=== PATIENT | female | born 2000 | race Caucasian/White ===

== ENCOUNTER 2021-12-08 23:45 | Emergency (ER) | payer BC, SELFPAY ==
[2021-12-08 23:46] VITALS: BP 119/68; PULSE 95; RESP 15; TEMP 36.6; O2SAT 97; BMI 28.3
--- NOTE | 2021-12-09 00:04 | NURSING ---
BABY HRT 89 PER MD
--- NOTE | 2021-12-09 00:05 | EDS_ITS ---
HPI HPI - Female History of Present Illness Chief Complaint: Informant: patient Associated Symptoms Associated Symptoms: Negative for Dysuria, Frequency, Urgency and Hematuria P: 1 Ab: 1 Narrative Narrative: Patient presents here at midnight because she has not felt her baby m ove in 2 weeks. She is 19 weeks . She denies any pain, vaginal bleeding, or fluid discharge. No other symptoms. She has seen her OB during this and already had an ultrasound showing an intrauterine at about 8 weeks and has an appointment in 1 or 2 weeks. PFSH PFSH Medical History no medical history no medical history Home Medications pren vit comb.1-iron cb-FA-DSS 1 tab PO.IVFORM DAILY 12/09/21 [History Last Taken Unknown] Allergy/AdvReac Type Severity Reaction Status Date / Time No Known Allergies Allergy Verified 12/08/21 23:49 Social History Smoking Status: Never smoker ROS ROS ED Constitutional Constitutional ED: Denies chills or fever(s) Eyes Eyes: Denies change in vision or diplopia ENT ENT ED: Denies rhinorrhea or sore throat Cardiovascular Cardiovascular: Denies chest pain or palpitations Respiratory/Chest Respiratory/Chest: Denies cough or dyspnea Gastrointestinal Gastrointestinal: Denies abdominal pain, diarrhea, nausea or vomiting Genitourinary Genitourinary ED: Denies dysuria or hematuria Musculoskeletal Musculoskeletal: Denies back pain or neck pain Integumentary Denies abscess or rash Neurologic Neurologic: Denies headache(s), paresthesias or weakness Psychiatric Psychiatric: Denies anxiety or suicidal thoughts EXAM Physical Exam Const Vital Signs: 12/08/21 23:46 Temperature 97.9 F Temperature Source Temporal Pulse Rate 95 Respiratory Rate 15 Blood Pressure 119/68 Blood Pressure Mean 85 Pulse Ox 97 Oxygen Delivery Method Room Air Positive well nourished and well developed General Appearance ED: well developed and NAD HEENT Reports moist mucous membranes normocephalic and atraumatic Eyes PERRL and EOMs intact bilaterally Neck full ROM and supple Resp normal respiratory effort and clear to auscultation bilaterally Cardio regular rate, regular rhythm and no murmurs GI non-tender GI Narrative: gravid uterus to about the umbilicus Auscultation: normoactive bowel sounds Palpation: soft Back/Spine no CVA tenderness General Back: other FROM Extremity normal to inspection General Extremety ED: Negative for edema, pulses abnormal or tenderness General Extremity: Negative for edema or pulses abnormal Neuro oriented x3, CN's II-XII intact bilaterally and no sensory deficits noted Sensorium / Orientation: awake and alert Motor Exam: strength 5/5 throughout Skin no rashes or lesions noted and no wounds MDM MDM MDM Narrative Medical decision making narrative: Verified single live intrauterine with good heart tones. Patient is already on vitamins advised to follow-up as scheduled. Procedures Other Procedures Procedure(s): Bedside OB ultrasound by EDMD: Good movement that patient is not feeling. heart tones 143. Discharge Plan Triage Chief Complaint: ED Provider: Jaguar Robles Dx/Rx/DC Orders Clinical Impression: Second trimester Instructions: Preg 2nd Trimester Prescriptions: No Action pren vit comb.1-iron cb-FA-DSS 1 tab PO.IVFORM DAILY RF: 0 Referrals: Luis Mares MD [STAFF PHYSICIAN] - Keep [facility] appointment Disposition Disposition: Home, Self Care
== END 2021-12-09 00:17 | disposition home or self-care (01) ==
LOC: ED 12-09 00:15
PROVIDERS: Emergency Provider Emergency Medicine; Visit Provider Emergency Medicine
DX: O36.8120 Decreased fetal movements, second trimester, not applicable or unspecified (principal); Z3A.19 19 weeks gestation of pregnancy
CPT/HCPCS: 99282

== ENCOUNTER 2022-10-28 13:58 | Emergency (ER) | payer MEDICAID, SELFPAY ==
[2022-10-28 13:59] VITALS: BP 121/66; PULSE 92; RESP 18; TEMP 36.2; O2SAT 100; BMI 32.7
[2022-10-28 14:54] LABS: Internal QC Validated? YES +Cl - CLEAR BKGD; Pregnancy, Serum, hCG Quali. NEGATIVE Negative
--- NOTE | 2022-10-28 15:09 | EDS_ITS ---
HPI HPI - Female History of Present Illness Chief Complaint: Informant: patient Associated Symptoms Test: Negative, Urine and Home Sexually: Positive for Active P: 1 Ab: 1 Narrative Narrative: Sexually active 21-year-old states she missed her menstrual cycle 8 days ago, and is concerned she may be . She is usually regular. She denies any pain or urinary symptoms but states she was a little nauseated off and on. She did home urine test, several of them, all negative, and she is requesting a serum test because that is how I found out I was in the past. She recently moved here from [place], states she does not have a doctor or a GEOCHEMICAL MANAGER. [facility] Medical History (Updated 10/28/22 @ 15:[address] Jaguar Robles MD) delivery delivered Home Medications NK 10/28/22 [History Last Taken Unknown] Allergy/AdvReac Type Severity Reaction Status Date / Time No Known Allergies Allergy Verified 10/28/22 14:18 Social History Smoking Status: Never smoker ROS ROS ED Constitutional Constitutional ED: Denies chills or fever(s) Eyes Eyes: Denies change in vision or diplopia ENT ENT ED: Denies rhinorrhea or sore throat Cardiovascular Cardiovascular: Denies chest pain or palpitations Respiratory/Chest Respiratory/Chest: Denies cough or dyspnea Gastrointestinal Gastrointestinal: Denies abdominal pain, diarrhea, nausea or vomiting Genitourinary Genitourinary ED: Denies dysuria or hematuria Musculoskeletal Musculoskeletal: Denies back pain or neck pain Integumentary Denies abscess or rash Neurologic Neurologic: Denies headache(s), paresthesias or weakness Psychiatric Psychiatric: Denies anxiety or suicidal thoughts EXAM Physical Exam Const Vital Signs: 10/28/22 13:59 Temperature 97.2 F L Temperature Source Temporal Pulse Rate 92 Respiratory Rate 18 Blood Pressure 121/66 H Blood Pressure Mean 84 Pulse Ox 100 Oxygen Delivery Method Room Air Positive well nourished and well developed General Appearance ED: well developed and NAD HEENT Reports moist mucous membranes normocephalic and atraumatic Eyes PERRL and EOMs intact bilaterally Neck full ROM and supple Resp normal respiratory effort GI non-tender and non-distended Auscultation: normoactive bowel sounds Palpation: soft Extremity normal to inspection General Extremety ED: Negative for edema, pulses abnormal or tenderness General Extremity: Negative for edema or pulses abnormal Neuro oriented x3, CN's II-XII intact bilaterally and no sensory deficits noted Sensorium / Orientation: awake and alert Motor Exam: strength 5/5 throughout Skin no rashes or lesions noted and no wounds MDM MDM MDM Narrative Medical decision making narrative: Serum test obtained and is negative. Patient's vital signs are normal and her exam is unremarkable she is discharged home with an INCOME TAX INVESTIGATOR referral. Lab Data Labs: Laboratory Results - last 24 hr 10/28/22 14:38 Serum , Qual NEGATIVE Discharge Plan Triage Chief Complaint: ED Provider: Jaguar Robles Dx/Rx/DC Orders Clinical Impression: Amenorrhea Instructions: ED Amenorrhea Prescriptions: No Action NK Primary Care Provider: Care Physician,No Primary Referrals: Clarisa Haskins MD [Med Staff - Courtesy Staff] - (call for appt) Disposition Disposition: Home, Self Care
== END 2022-10-28 15:16 | disposition home or self-care (01) ==
PROVIDERS: Emergency Provider Emergency Medicine; Visit Provider Emergency Medicine
DX: N91.2 Amenorrhea, unspecified (principal); Z32.02 Encounter for pregnancy test, result negative
CPT/HCPCS: 84703; 99282

== ENCOUNTER 2023-07-28 20:22 | Emergency (ER) | payer SELFPAY ==
[2023-07-28 20:23] VITALS: BP 107/82; PULSE 154; RESP 18; TEMP 36.4; O2SAT 95; BMI 33.5
--- NOTE | 2023-07-28 20:41 | EKG12_ITS ---
Test Reason : COLD Blood Pressure : / mmHG Vent. Rate : 136 BPM Atrial Rate : 136 BPM P-R Int : 154 ms QRS Dur : 076 ms QT Int : 270 ms P-R-T Axes : 053 073 021 degrees QTc Int : 406 ms Sinus tachycardia Possible Left atrial enlargement Borderline ECG Confirmed by ZHENG GOODE, BERNADETTE ([id number]), staff editor AVERY ISAAC ([id number]) on 08/01/2023 2:01:39 P M Referred By: Confirmed By:SANDRA CALZADA MD
--- NOTE | 2023-07-28 20:43 | EX.ED.DYSGE1 ---
HPI History of Present Illness Chief Complaint: Cold Sx Informant: patient Narrative Narrative: Patient presents with a cold. Patient states that a couple nights ago she started coughing. Sometimes she does this anyway but it seems like it is harsher and more. She is denying any chest pain at any time. She is not actually short of breath. She does have a bit of a sore throat. She has been having fevers and chills. No myalgias. No hemoptysis. No nausea vomiting diarrhea. She states she is really not drinking as much as she should and feels that she is dehydrated but she is not nauseated. Evidently her daughter had some similar symptoms recently. I do note that the patient's heart rate is fast when she comes in. When I listen to her it is quick. She states she has had a fast heart rate before but she thinks it was due to Vyvanse that she used to be on but is no longer taking. She is not taking any byqo-ihc-mlvuckm meds now. She does not feel her heart rate going quickly. She has no history of DVT or PE. No recent surgery immobilization or control. But she did drive down to [facility] over . However this was only about a 2-1/2-hour drive. She had no chest pain or leg pain at the time. None afterwards. She states overall she does not feel bad. [facility] Medical History delivery delivered Home Medications NK 10/28/22 [History Last Taken Unknown] Allergy/AdvReac Type Severity Reaction Status Date / Time No Known Allergies Allergy Verified 07/28/23 20:23 Social History Smoking Status: Never smoker ROS ROS ED ROS Narrative A complete review of systems was performed and is negative except as documented in the history of present illness. Some specific details below. Constitutional: She states she has had subjective fevers and chills with hot cold sensations. Has not actually measured her temperature. EYE: No discharge, visual complaints, or pain. ENT: She does have a bit of a sore throat. She states her left side is always sore and this prevents her from being able to swallow pills. It does feel a little different than normal though. CV: She denies chest pain or palpitations. No syncope or near syncope. Respiratory: See history of present illness. Some cough but no wheezing no dyspnea and no sputum production. GI: No abdominal pain. No nausea vomiting diarrhea. No blood in stool. Her appetite evidently is down though. : No frequency dysuria or hematuria. Musculoskeletal: No recent trauma. No pains. No swelling. Skin: No rash. Nondiaphoretic. Neuro: No weakness or numbness. Endocrine: No polyuria or polydipsia. EXAM Physical Exam Narrative Exam Narrative: CONSTITUTIONAL: Patient is nontoxic in appearance. The patient looks comfortable. Work of breathing looks normal. Despite her increased heart rate she looks amazingly comfortable. HEENT: No notable trauma. Mucous membranes are somewhat dry. Both tonsils are slightly enlarged. There are some either multiple tonsil lifts or a little bit of exudate on them 2. EYES: No conjunctival injection. No proptosis. No pallor. No icterus. NECK:No JVD. No stridor. CARDIOVASCULAR: Tachycardic rate. Regular rhythm. No notable murmur. No JVD. No muffled tones. Peripheral pulses are still equal and strong RESPIRATORY: No respiratory distress. Breathing is unlabored. No wheezes. No rhonchi. No rales. No pain with a deep breath. No chest wall tenderness. Pulmonary exam is overall benign. Saturations are normal at 95% on room air showing no hypoxia. She does not cough while I am in the room. GASTROINTESTINAL: Not distended. Bowel sounds are normal. No tenderness. No guarding. No rebound. No palpable mass. No bruit is heard. GENITOURINARY: No tenderness over the bladder. No CVA tenderness. MUSCULOSKELETAL: Atraumatic. No peripheral edema. No cord. No tenderness along the deep venous system. No asymmetry. No distended veins. NEUROLOGICAL: Patient is alert and appropriate. No focal deficit noted. SKIN: No noted rashes. No diaphoresis. PSYCHIATRIC: Patient is calm. Mood is appropriate. Const Vital Signs: 07/28/23 20:23 07/28/23 21:01 07/28/23 21:01 Temperature 97.5 F L 97.5 F L Temperature Source Temporal Temporal Pulse Rate 154 H 154 H Respiratory Rate 18 18 Blood Pressure 107/82 H 107/82 H Blood Pressure Mean 90 90 Pulse Ox 95 94 95 Oxygen Delivery Method Room Air Room Air 07/28/23 22:24 Temperature Temperature Source Pulse Rate 127 H Respiratory Rate 18 Blood Pressure 126/81 H Blood Pressure Mean 96 Pulse Ox 99 Oxygen Delivery Method Room Air MDM MDM MDM Narrative Medical decision making narrative: My independent interpretation the patient's two-view chest x-ray shows changes likely due to body habitus. No defined infiltrate. Final reading showed mild diffuse bronchial thickening but no focal consolidation. Patient CBC showed high white count at 17.9. Her hemoglobin and platelets were normal. Patient's electrolytes are overall normal. Patient's glue close with just mildly up at 119. Patient's serum is negative. Patient's D-dimer was negative at 0.45. Patient's heart rate was rechecked. She was down to 127 with fluids. She still asymptomatic with this. I talked to her again. There is no other symptoms such as abdominal pain dysuria rashes headache. She states she has some mild nausea but that is not uncommon. Just like she states is not uncommon for her to have a bit of a cough. She again denies any drugs or rzbf-cgo-tsmsysz meds that she is taken. With her persistent tachycardia and a cough we will do a CTA of the chest even though her D-dimer was within normal limits. My independent interpretation of the CTA of the chest shows no acute process and final reading is the same. I checked the patient again. She is asymptomatic. She has no chest pain. She is not short of breath. She has no indication that her heart rate is going quickly. She is gotten up and walked around does not have symptoms. This patient's white count is up so I think she has some infectious process but this may be viral. She has a history of tachycardia but it sounds like that was primarily occurring when she was on Vyvanse. She is not on this now. I will send off blood cultures. But we will let her go home. We discussed multitude of reasons that would bring her back Lab Data Attestation: I reviewed the patient's lab results. Labs: Laboratory Results - last 24 hr 07/28/23 07/28/23 20:58 21:20 WBC 17.9 H RBC 4.52 Hgb 12.0 Hct 40.9 MCV 90.5 MCH 26.5 L MCHC 29.3 L RDW Std Deviation 49.7 H RDW Coeff of Carly 15.0 H Plt Count 292 MPV 11.7 Immature Gran % (Auto) 0.300 Neut % (Auto) 83.4 H Lymph % (Auto) 9.3 L Ward % (Auto) 5.9 Eos % (Auto) 0.4 Baso % (Auto) 0.7 Absolute Neuts (auto) 14.9 H Absolute Lymphs (auto) 1.67 Nucleated RBC % 0 D-Dimer Quant (PE/DVT) Cancelled 0.45 Sodium 136 Potassium 3.7 Chloride 106 Carbon Dioxide 27.0 Anion Gap 3 L BUN 9 Creatinine 0.72 Estim Creat Clear Calc 102.24 Est GFR (MDRD) Af Amer 131 Est GFR (MDRD) Non-Af 108 BUN/Creatinine Ratio 12.5 Glucose 119 H Calcium 9.1 Serum , Qual NEGATIVE Radiography Diagnostic Testing: Clinical Impression(s) from Imaging Studies Chest X-Ray 07/28/23 21:08 IMPRESSION: Mild diffuse bronchial thickening as can be seen with bronchitis or asthma. No focal consolidation. Electronically Signed: Amado Pastor MD at 21:55 EST , Chest CTA 07/28/23 22:28 IMPRESSION: Normal CTA chest examination, without a demonstrated pulmonary embolism or arterial dissection. Electronically Signed: Philip Molina MD at 23:08 EST , EKG Initial EKG: Comments: My independent interpretation of the patient's EKG shows a sinus rhythm with tachycardic rate at 136. No ventricular ectopy. No acute ST elevation or depression. TX interval, QRS duration, and QTc look to be normal. I do not have a prior to compare. Discharge Plan Triage Chief Complaint: Cold Sx ED Provider: Carmelo Malhotra Dx/Rx/DC Orders Clinical Impression: URI with cough and congestion, Sinus tachycardia, Leukocytosis Instructions: ED URI, Viral, No Abx (Adult) Prescriptions: No Action NK Primary Care Provider: Care Physician,No Primary Referrals: Lan Small MD [Med Staff - Department Store General Manager] - 2 Days Care Physician,No Primary [Primary Care Provider] - Disposition Disposition: Home, Self Care
[2023-07-28] MEDS: 0.9% Normal Saline (1000mL) 1,000 ML 999 ML IV (20:59)
[2023-07-28 21:01] VITALS: BP 107/82; PULSE 154; RESP 18; TEMP 36.4; O2SAT 94; O2SAT 95
[2023-07-28 21:07] LABS: Absolute Lymphocyte Count 1.67 X10^3/uL (0.83-4.51); Absolute Neutrophil Count 14.9 X10^3/uL (2.0-7.7); Basophil# 0.12 X10^3/uL; Basophil% 0.7 % (0-1); Eosinophil# 0.07 X10^3/uL; Eosinophils% 0.4 % (0-5); Hematocrit 40.9 % (37-47); Lymphocyte # 1.67 X10^3/ul (0.83-4.51); Lymphocyte % 9.3 % (19-41); Mean Corp Hgb Conc 29.3 g/dL (32-36); Mean Corpuscular Hgb 26.5 pg (27.0-32.0); Mean Corpuscular Volume 90.5 fL (81-99); Mean Platelet Vol. 11.7 fl (6.2-12.0); Monocyte# 1.05 X10^3/uL; Monocyte% 5.9 % (0-10); NRBC Flagged by Analyzer 0 % (0-5); Neutrophil # 14.92 X10^3/uL (2.7-7.7); Neutrophil % 83.4 % (47-70); Platelet Count 292 K/mm3 (150-450); RBC Distribution Width SD 49.7 fl (35.1-43.9); Red Blood Count 4.52 M/mm3 (4.2-5.4); White Blood Count 17.9 K/mm3 (4.4-11.0)
--- NOTE | 2023-07-28 21:08 | RAD_ITS ---
INDICATION: cough EXAMINATION/TECHNIQUE: X-RAY - XR Chest 2 Views COMPARISON: No relevant prior comparison study available FINDINGS: LINES/DEVICES: None. LUNGS: The lungs are well expanded. Mild diffuse bronchial wall thickening. No consolidation, edema or effusion. No pneumothorax. MEDIASTINUM AND CARDIOVASCULAR STRUCTURES: Cardiac silhouette not enlarged. Central airways and mediastinal contour are unremarkable. BONES AND SOFT TISSUES: Unremarkable. RAD/Chest PA and Lateral IMPRESSION: Mild diffuse bronchial thickening as can be seen with bronchitis or asthma. No focal consolidation. Electronically Signed: Amado Pastor MD at 21:55 EST ,
[2023-07-28 21:16] LABS: Internal QC Validated? YES +Cl - CLEAR BKGD; Pregnancy, Serum, hCG Quali. NEGATIVE Negative
[2023-07-28 21:20] LABS: Anion Gap 3 (5-15); BUN 9 mg/dL (7-18); BUN/Creat Ratio 12.5 RATIO (10-20); Calcium,Total 9.1 mg/dL (8.5-10.1); Chloride 106 mmol/L (98-107); Creatinine, Serum 0.72 mg/dL (0.55-1.02); EST Glomerular Filtration Rate 108 mL/min (>60); Est Glom Filt Rate - Afr Amer 131 mL/min (>60); Estimated Creatinine Clearance 102.24 ml/min; Glucose 119 mg/dL (74-106); Potassium 3.7 mmol/L (3.5-5.1); Sodium Level 136 mmol/L (136-145)
[2023-07-28 21:45] LABS: D-Dimer Quantitative (DVT/PE) 0.45 FEU/ug/m (0.27-0.49)
[2023-07-28 22:24] VITALS: BP 126/81; PULSE 127; RESP 18; O2SAT 99
--- NOTE | 2023-07-28 22:28 | CT_ITS ---
STUDY: CTA CHEST REASON FOR EXAM: Female, 22 years old. PE RADIATION DOSAGE (If Supplied By Facility): CTDIvol = ( 14.91 ) mGy, DLP = ( 500.93 ) mGycm TECHNIQUE: The examination was performed with the intravenous administration of IV 100mL Isovue-370. Post-processing of the angiographic images was performed, with multiplanar reformation and 3D reconstruction. Individualized dose optimization techniques were used for this CT. COMPARISON: Chest x-ray earlier today FINDINGS: Normal enhancement of the main pulmonary artery and right and left pulmonary arteries. Normal enhancement of the bilateral peripheral pulmonary arteries. There is no demonstrated pulmonary embolism. Normal thoracic aorta and visualized great vessels. There is no demonstrated aortic dissection. Normal heart and pericardium. Normal mediastinum. Normal hilar regions. Normal visualized trachea and bronchi. The lungs are well expanded. Normal pulmonary parenchyma. Normal pleura. Normal chest wall structures. Normal osseous structures. Normal visualized upper abdomen. CT/CTA Chest W/WO Contrast IMPRESSION: Normal CTA chest examination, without a demonstrated pulmonary embolism or arterial dissection. Electronically Signed: Philip Molina MD at 23:08 EST ,
[2023-07-28] MEDS: Ondansetron 4 MG/2 ML Vial IV (22:31)
[2023-07-28 23:52] VITALS: BP 129/75; PULSE 110; RESP 17; O2SAT 99
== END 2023-07-28 23:53 | disposition home or self-care (01) ==
PROVIDERS: Emergency Provider Emergency Medicine; Visit Provider Emergency Medicine
DX: J06.9 Acute upper respiratory infection, unspecified (principal); R00.0 Tachycardia, unspecified; D72.829 Elevated white blood cell count, unspecified; R05.9 Cough, unspecified
CPT/HCPCS: 71046; 71275; 80048; 84703; 85025; 85379; 87040; 87428; 87880; 93005; 96361; 96374; 99283; J7030; Q9967; J2405

== ENCOUNTER 2024-03-11 17:11 | Emergency (ER) | payer SELFPAY ==
[2024-03-11 17:12] VITALS: BP 115/78; PULSE 120; RESP 18; TEMP 36.4; O2SAT 95; BMI 34.4
--- NOTE | 2024-03-11 17:35 | EKG12_ITS ---
Test Reason : Blood Pressure : / mmHG Vent. Rate : 075 BPM Atrial Rate : 075 BPM P-R Int : 148 ms QRS Dur : 076 ms QT Int : 358 ms P-R-T Axes : 027 036 013 degrees QTc Int : 399 ms Sinus rhythm with marked sinus arrhythmia Otherwise normal ECG Confirmed by ZHENG GOODE, BERNADETTE ([id number]), editor news YAMILETH MENDEZ ([id number]) on 03/13/2024 2:27:20 PM Referred By: Confirmed By:SANDRA CALZADA MD
--- NOTE | 2024-03-11 17:36 | RAD_ITS ---
EXAM: XR CHEST, 2 VIEWS CLINICAL INDICATION: left chest pain TECHNIQUE: Frontal and lateral views of the chest. COMPARISON: 07/28/2023 FINDINGS: LUNGS AND PLEURAL SPACES: No significant abnormality. No consolidation or edema. No pneumothorax. No effusion. HEART: No significant abnormality. Cardiac silhouette not enlarged. MEDIASTINUM: Central airways and mediastinal contour are unremarkable. BONES/JOINTS: No significant abnormality. No acute fracture. SOFT TISSUES: No significant abnormality. RAD/Chest PA and Lateral IMPRESSION: No radiographic evidence of acute cardiopulmonary disease. Electronically Signed: Dain Yip DO at 18:20 EDT ,
--- NOTE | 2024-03-11 17:36 | ED.VIS.CHEST ---
HPI History of Present Illness Chief Complaint: Chest Pain Informant: patient Narrative Narrative: 23-year-old female states has been having intermittent sharp nonpleuritic left upper chest pain without radiation for the past 5 years. She states first time she ever got it she was in school in class sitting, episodes are brief, she went to the nursing office her heart rate was 120 and they told her it was related to that and that she should discontinue her ADHD medication. She discontinued it and has been on no ADHD medicines ever since. She is been continue to have the pains intermittently especially for the last year or 2, she states she will get brief episodes that occur for 20 or 30 minutes, off-and-on during that lasting a couple seconds at a time. No other associated symptoms such as dyspnea, nausea, lightheadedness, palpitations, arm or jaw discomfort. When asked when she tends to get them it is more often when she is lying down at night then when she is doing activities during the day, during which she almost never has any issue. She does not have a PCP, it has been 5 years since she had this evaluated, and her wanted her to have it evaluated today, this is why she presents to the ER today on Tuesday. [facility] Medical History (Updated 03/11/24 @ 17:[address] Jaguar Robles MD) ADHD De Quervain's tenosynovitis, left Strain of left wrist Left wrist pain delivery delivered Home Medications ?Medication ?Instructions ?Recorded ?Last Taken ?Type pantoprazole 40 mg tablet,delayed 40 mg PO DAILY #14 tabs 03/11/24 Unknown Rx release Allergy/AdvReac Type Severity Reaction Status Date / Time No Known Allergies Allergy Verified 03/11/24 17:12 Social History household members: family Smoking Status: Never smoker alcohol intake: never ROS ROS ED Constitutional Constitutional ED: Denies chills or fever(s) Eyes Eyes: Denies change in vision or diplopia ENT ENT ED: Denies rhinorrhea or sore throat Cardiovascular Cardiovascular: Reports chest pain; Denies lightheadedness, orthopnea, palpitations, pedal edema, racing heartbeat or syncope Respiratory/Chest Respiratory/Chest: Denies cough, dyspnea or orthopnea Gastrointestinal Gastrointestinal: Denies abdominal pain, diarrhea, nausea or vomiting Genitourinary Genitourinary ED: Denies dysuria or hematuria Musculoskeletal Musculoskeletal: Denies back pain or neck pain Integumentary Denies abscess or rash Neurologic Neurologic: Denies headache(s), paresthesias or weakness Psychiatric Psychiatric: Denies suicidal thoughts EXAM Physical Exam Const Vital Signs: 03/11/24 17:12 03/11/24 17:12 Temperature 97.6 F L Temperature Source Temporal Pulse Rate 120 H Respiratory Rate 18 Respiratory Effort Normal Non-Labored Blood Pressure 115/78 Blood Pressure Mean 90 Pulse Ox 95 Oxygen Delivery Method Room Air Positive well nourished and well developed General Appearance ED: well developed and NAD HEENT Reports moist mucous membranes normocephalic and atraumatic Eyes PERRL and EOMs intact bilaterally Neck full ROM and supple Chest Wall inspection of chest normal and palpation of chest normal Chest: Negative for tenderness Resp normal respiratory effort and clear to auscultation bilaterally Cardio regular rate, regular rhythm and no murmurs Rate: other Other Details: varies w/ respiration. no tachycardia. GI non-tender and non-distended Auscultation: normoactive bowel sounds Palpation: soft Back/Spine no CVA tenderness General Back: other FROM Extremity normal to inspection General Extremety ED: Negative for edema, pulses abnormal or tenderness General Extremity: Negative for edema or pulses abnormal Neuro oriented x3, CN's II-XII intact bilaterally and no sensory deficits noted Sensorium / Orientation: awake and alert Motor Exam: strength 5/5 throughout Skin no rashes or lesions noted and no wounds Heart Score History: Slightly/Non-Suspicious ECG: Normal Age: </= 45 years Risk Factors: No Risk Factors Score: 0 MDM MDM MDM Narrative Medical decision making narrative: Very unlikely to be acute coronary syndrome in this healthy 23-year-old non-smoker with atypical symptoms. EKG obtained and is normal, arguing against that, pericarditis, myocarditis. Obtain some basic labs since she does not have a doctor. They are unremarkable. 2 view chest x-ray mitral rotation is normal, arguing against nodule/mass, pneumonia, aortic dissection. I think would be reasonable to put the patient on a trial of a PPI especially since she has symptoms more often when she is lying down suggesting possibly this could be related to her esophagus, and have her follow-up with the PCP next on the unassigned list is Dr. Morgan. Lab Data Attestation: I reviewed the patient's lab results. Labs: Laboratory Results - last 24 hr 03/11/24 17:45 WBC 10.6 RBC 4.16 L Hgb 11.2 L Hct 34.9 L MCV 83.9 MCH 26.9 L MCHC 32.1 RDW Std Deviation 45.6 H RDW Coeff of Carly 15.0 H Plt Count 271 MPV 10.4 Immature Gran % (Auto) 0.200 Neut % (Auto) 64.7 Lymph % (Auto) 26.6 [place] % (Auto) 5.5 Eos % (Auto) 2.2 Baso % (Auto) 0.8 Absolute Neuts (auto) 6.8 Absolute Lymphs (auto) 2.81 Nucleated RBC % 0 Sodium 139 Potassium 4.1 Chloride 109 H Carbon Dioxide 28.0 Anion Gap 2 L BUN 12 Creatinine 0.65 Estim Creat Clear Calc 137.81 Est GFR (MDRD) Af Amer 147 Est GFR (MDRD) Non-Af 121 BUN/Creatinine Ratio 18.5 Glucose 138 H Calcium 8.8 Radiography Diagnostic Testing: Clinical Impression(s) from Imaging Studies Chest X-Ray 03/11/24 17:36 IMPRESSION: No radiographic evidence of acute cardiopulmonary disease. Electronically Signed: Dain Yip DO at 18:20 EDT , Rhythm Strip Rhythm Strip: Sinus Rhythm Rate: 95 Ectopy: None EKG Initial EKG: Attestation: I personally reviewed and interpreted this EKG as follows: Interpretation: Sinus Rhythm and No Acute Injury Pattern Prior EKG tracings: available for review Prior: Unchanged Discharge Plan Triage Chief Complaint: Chest Pain ED Provider: Jaguar Robles Dx/Rx/DC Orders Clinical Impression: Intermittent left-sided chest pain Instructions: ED Chest Pain, Noncardiac Prescriptions: New pantoprazole 40 mg tablet,delayed release (DR/EC) 40 mg PO DAILY Qty: 14 0RF Primary Care Provider: Care Physician,No Primary Referrals: Yovana Morgan MD [Med Staff - Elementary Librarian] - Care Physician,No Primary [Primary Care Provider] - Print Language: Panamanian Disposition Disposition: Home, Self Care
[2024-03-11 17:52] LABS: Absolute Lymphocyte Count 2.81 X10^3/uL (0.83-4.51); Absolute Neutrophil Count 6.8 X10^3/uL (2.0-7.7); Basophil# 0.08 X10^3/uL; Basophil% 0.8 % (0-1); Eosinophil# 0.23 X10^3/uL; Eosinophils% 2.2 % (0-5); Hematocrit 34.9 % (37-47); Hemoglobin 11.2 g/dL (12.0-15.0); Lymphocyte # 2.81 X10^3/ul (0.83-4.51); Lymphocyte % 26.6 % (19-41); Mean Corp Hgb Conc 32.1 g/dL (32-36); Mean Corpuscular Hgb 26.9 pg (27.0-32.0); Mean Corpuscular Volume 83.9 fL (81-99); Mean Platelet Vol. 10.4 fl (6.2-12.0); Monocyte# 0.58 X10^3/uL; Monocyte% 5.5 % (0-10); NRBC Flagged by Analyzer 0 % (0-5); Neutrophil # 6.83 X10^3/uL (2.7-7.7); Neutrophil % 64.7 % (47-70); Platelet Count 271 K/mm3 (150-450); RBC Distribution Width SD 45.6 fl (35.1-43.9); Red Blood Count 4.16 M/mm3 (4.2-5.4); White Blood Count 10.6 K/mm3 (4.4-11.0)
[2024-03-11 18:03] LABS: Anion Gap 2 (5-15); BUN 12 mg/dL (7-18); BUN/Creat Ratio 18.5 RATIO (10-20); Calcium,Total 8.8 mg/dL (8.5-10.1); Chloride 109 mmol/L (98-107); Creatinine, Serum 0.65 mg/dL (0.55-1.02); EST Glomerular Filtration Rate 121 mL/min (>60); Est Glom Filt Rate - Afr Amer 147 mL/min (>60); Estimated Creatinine Clearance 137.81 ml/min; Glucose 138 mg/dL (74-106); Potassium 4.1 mmol/L (3.5-5.1); Sodium Level 139 mmol/L (136-145)
[2024-03-11 19:13] VITALS: BP 108/62; PULSE 77; RESP 18; TEMP 36; O2SAT 98
== END 2024-03-11 19:15 | disposition home or self-care (01) ==
PROVIDERS: Emergency Provider Emergency Medicine; Visit Provider Emergency Medicine
DX: R07.9 Chest pain, unspecified (principal)
CPT/HCPCS: 71046; 80048; 85025; 93005; 99282